=== PATIENT | male | born 2000 | race Caucasian/White ===

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

== ENCOUNTER 2019-04-23 20:53 | Emergency (ER) | payer OTHER ==
[2019-04-23 21:06] VITALS: BP 129/77
--- NOTE | 2019-04-23 21:18 | UC ---
Hand/Wrist HPI - HPI Summary HPI Summary: was a tapple fest today and believes he got stung on the left hand by a bee--- red swollen area noted on dorsal surface of hand none tender no streaking - History Of Current Complaint Chief Complaint: UCSkin Stated Complaint: SWOLLEN HAND BEE STING Time Seen by Provider: 04/23/19 21:12 Hx Obtained From: Patient ?: No Mechanism Of Injury: bee sting Onset/Duration: Sudden Onset, Lasting Days - 1 Pain Intensity: 2 Pain Scale Used: 0-10 Numeric Character Of Pain: Aching Alleviating Factor(s): Nothing Associated Signs And Symptoms: Positive: Swelling Related History: Dominant Hand Right - Allergies/Home Medications Allergies/Adverse Reactions: Allergies Allergy/AdvReac Type Severity Reaction Status Date / Time levofloxacin [From Levaquin] Allergy Intermediate Rash Verified 04/23/19 21:06 Home Medications: Home Medications Isotretinoin [Absorica] 40 mg PO BID 04/23/19 [History Confirmed 04/23/19] PMH/Surg Hx/FS Hx/Imm Hx Previously Healthy: Yes - Surgical History Surgical History: None - Family History Known Family History: Positive: None - denies htn, cad. Negative: Cardiac Disease, Hypertension - Social History Occupation: Student Lives: With Family Alcohol Use: None Substance Use Type: None Smoking Status (MU): Never Smoked Tobacco Review of Systems All Other Systems Reviewed And Are Negative: Yes Constitutional: Positive: Negative Skin: Positive: Other - red swollen area on hand is unsure exactly what happened Eyes: Positive: Negative ENT: Positive: Negative Respiratory: Positive: Negative Cardiovascular: Positive: Negative Gastrointestinal: Positive: Negative Genitourinary: Positive: Negative Motor: Positive: Negative Neurovascular: Positive: Negative Musculoskeletal: Positive: Negative Neurological: Positive: Negative Psychological: Positive: Negative Is Patient Immunocompromised?: No Physical Exam Triage Information Reviewed: Yes Appearance: Well-Appearing, No Pain Distress, Well-Nourished Vital Signs: Initial Vital Signs Temp 97.7 F 04/23/19 21:02 Pulse 64 04/23/19 21:02 Resp 18 04/23/19 21:02 BP 129/77 04/23/19 21:02 Pulse Ox 99 04/23/19 21:02 Vital Signs Reviewed: Yes Eye Exam: Normal Eyes: Positive: Conjunctiva Clear ENT Exam: Normal ENT: Negative: Nasal congestion, Trismus, Muffled voice, Hoarse voice Dental Exam: Normal Neck exam: Normal Neck: Positive: Supple, Nontender Respiratory Exam: Normal Respiratory: Positive: Chest non-tender, Lungs clear, Normal breath sounds, No respiratory distress, No accessory muscle use Cardiovascular Exam: Normal Cardiovascular: Positive: RRR, No Murmur, Pulses Normal Musculoskeletal Exam: Other Musculoskeletal: Positive: Strength Intact, ROM Intact - swelling dorsum left hand, Edema @ Neurological Exam: Normal Neurological: Positive: Alert, Muscle Tone Normal Psychological Exam: Normal Skin: Positive: Other - swelling redness no discrete sting noted Hand/Wrist Course/Dx - Course Course Of Treatment: for thoughness patient will be treated with both keflex and benadryl as he is not sure what happened to him---will follow with pcp - Differential Dx/Diagnosis Provider Diagnosis: Localized swelling on left hand Discharge ED - Sign-Out/Discharge Documenting (check all that apply): Patient Departure All imaging exams completed and their final reports reviewed: No Studies - Discharge Plan Condition: Stable Disposition: HOME Prescriptions: Cephalexin CAP* [Keflex CAP*] 500 mg PO QID #20 cap Patient Education Materials: Diphenhydramine (By mouth), Insect Bite or Sting ( ED), Ice Pack Application (ED) Referrals: Karen Barrientos NP [Primary Care Provider] - If Needed - Billing Disposition and Condition Condition: STABLE Disposition: Home
== END 2019-04-23 21:26 | disposition home or self-care (01) ==
LOC: UCEAST 20:53
DX: S60.569A Insect bite (nonvenomous) of unspecified hand, initial encounter (principal); Z88.1 Allergy status to other antibiotic agents; W57.XXXA Bitten or stung by nonvenomous insect and other nonvenomous arthropods, initial encounter; Y92.9 Unspecified place or not applicable
CPT/HCPCS: 99212; G0463